=== PATIENT | male | born 1995 | race Hispanic/Latino ===

== ENCOUNTER 2018-12-12 14:46 | Emergency (ER) | payer OTHER ==
[2018-12-12 15:47] LABS: Absolute Lymphocytes (CBC) 1.6 K/uL (0.7-4.9); Absolute Monocytes 0.6 K/uL (0.1-1.3); Absolute Neutrophil 4.2 K/uL (1.8-8.0); Basophils % 1.3 % (0-1.3); Eosinophils % 2.9 % (0-4.4); Hematocrit 45.5 % (39.6-49.0); Lymphocytes % 24.5 % (15.3-44.8); MPV 6.8 fL (7.6-11.3); Monocytes % 9.4 % (3.3-12.3); RBC Red Blood Cell Count 5.49 M/uL (4.33-5.43)
--- NOTE | 2018-12-12 15:54 | EKG ---
Test Date: 2018-12-12 Test Time: 15:02:54 Grades 7 8 Tutor: LION MEASUREMENT RESULTS: Intervals: Rate: 89 [place]: 156 QRSD: 86 QT: 330 QTc: 401 [place]: P: 33 [place]: 156 QRS: 68 T: 18 INTERPRETIVE STATEMENTS: Normal sinus rhythm Normal ECG No previous ECG available for comparison Electronically Signed On 12-12-18 15:54:13 CDT by Bro Medellin
--- NOTE | 2018-12-12 15:58 | RAD REPORT ---
EXAM DESCRIPTION: RAD - Chest Single View - 12/12/2018 3:35 pm CLINICAL HISTORY: Chest pain COMPARISON: None. TECHNIQUE: AP portable chest image was obtained 1531 hours . FINDINGS: Lungs are clear. Heart and vasculature are normal. No measurable pleural effusion and no p neumothorax. No acute bony abnormality seen. No acute aortic findings suspected. IMPRESSION: No acute cardiopulmonary process.
[2018-12-12 16:08] LABS: BUN Blood Urea Nitrogen 12 mg/dL (7-18); Bicarbonate 30 mmol/L (21-32); Glucose Level 76 mg/dL (74-106); Potassium 3.7 mmol/L (3.5-5.1); Sodium Level 143 mmol/L (136-145); Troponin (Emerg Dept Use Only) < 0.02 ng/mL (0.0-0.045)
--- NOTE | 2018-12-12 16:27 | ER ---
Nurse's Notes [facility] Name: Ata Wise Age: 23 yrs Sex: Male : 1995 Arrival Date: 12/12/2018 Time: 14:48 Bed 28 Private MD: Diagnosis: Chest pain, unspecified Presentation: 12/12 14:56 Presenting complaint: Patient states: Chest pain upon waking in the morning x 1 week, ph reports that pain is in center of chest and improves approx 30 min after waking, also reports SOB when pain occurs, denies N/V. Transition of care: patient was not received from another setting of care. Onset of symptoms was December 12, 2018. Risk Assessment: Do you want to hurt yourself or someone else? Patient reports no desire to harm self or others. Initial Sepsis Screen: Does the patient meet any 2 criteria? No. Patient's initial sepsis screen is negative. Does the patient have a suspected source of infection? No. Patient's initial sepsis screen is negative. Care prior to arrival: None. 14:56 Method Of Arrival: Ambulatory 14:56 Acuity: KHADIJAH 3 ph Historical: - Allergies: 14:58 No Known Allergies; ph - Home Meds: 14:58 None [Active]; ph - PMHx: 14:58 None; ph - PSHx: 14:58 None; ph - Immunization history:: Adult Immunizations unknown. - Social history:: Smoking status: Patient/guardian denies using tobacco. - Ebola Screening: : No symptoms or risks identified at this time. Screenin:37 Abuse screen: Denies threats or abuse. Denies injuries from another. Nutritional rv screening: No deficits noted. Tuberculosis screening: No symptoms or risk factors identified. Fall Risk None identified. Assessment: 15:29 General: Appears in no apparent distress. comfortable, Behavior is calm, cooperative. rv Pain: Complains of pain in chest Pain does not radiate. Pain began MORE THAN A WEEK NOW. DURING THE MORNING UPON WAKING UP FOR 20 MINUTES. Neuro: Level of Consciousness is awake, alert, obeys commands, Oriented to person, place, time, situation. Cardiovascular: Capillary refill < 3 seconds Rhythm is regular Chest pain is described as Pain is 5 out of 10 on a pain scale. began HAPPENS DURING THE MORNING UPON WAKING UP AND LASTS FOR JUST 20 MINUTES. is alleviated by rest. Respiratory: Airway is patent. GI: No signs and/or symptoms were reported involving the gastrointestinal system. : No signs and/or symptoms were reported regarding the genitourinary system. EENT: No signs and/or symptoms were reported regarding the EENT system. Derm: Skin is intact. Musculoskeletal: No signs and/or symptoms reported regarding the musculoskeletal system. 16:44 Reassessment: Patient appears in no apparent distress at this time. Patient and/or rv family updated on plan of care and expected duration. Pain level reassessed. Patient is alert, oriented x 3, equal unlabored respirations, skin warm/dry/pink. discharge free of chest pain. Vital Signs: 14:57 BP 142 / 80; Pulse 83; Resp 18; Temp 98.2; Pulse Ox 98% on R/A; Weight 113.4 kg; Height ph 5 ft. 11 in. (180.34 cm); Pain 0/10; 15:39 BP 127 / 72 RA; Pulse 72; Resp 13 S; Temp 98.3; Pulse Ox 98% on R/A; rv 16:42 BP 117 / 70; Pulse 74; Resp 17; Temp 98.5; Pulse Ox 99% ; rv 14:57 Body Mass Index 34.87 (113.40 kg, 180.34 cm) ph ED Course: 14:48 Patient arrived in ED. as 14:57 Triage completed. ph 15:02 Rub[facility]-C [facility]. kb 15:02 Jean-Pierre Merchant MD is Attending Physician. kb 15:02 EKG done, by chemistry laboratory technician. reviewed by Rubia RANDOLPH. at1 15:25 Inserted saline lock: 20 gauge in left antecubital area, using aseptic technique. Blood ss collected. 15:29 José Miguel Cruz, AMANDA is Primary Nurse. rv 15:34 X-ray completed. Portable x-ray completed in exam room. Patient tolerated procedure mh1 well. 15:35 XRAY Chest (1 view) In Process Unspecified. EDMS 15:37 Patient maintains SpO2 saturation greater than 95% on room air. rv 15:37 Patient has correct armband on for positive identification. Bed in low position. Call rv light in reach. Side rails up X 1. Adult w/ patient. engine monitor on. Pulse ox on. NIBP on. 15:41 Arm band placed on right wrist. Patient placed in an exam room, on a stretcher, on rv bus monitor, on pulse oximetry, Patient notified of wait time. EKG completed in triage. Results shown to MD. 16:43 No provider procedures requiring assistance completed. IV discontinued, intact, rv bleeding controlled, No redness/swelling at site. Pressure dressing applied. Administered Medications: No medications were administered Outcome: 16:26 Discharge ordered by . kb 16:44 Discharged to home ambulatory. rv 16:44 Condition: good 16:44 Discharge instructions given to patient, Instructed on discharge instructions, follow up and referral plans. Demonstrated understanding of instructions, follow-up care. 16:44 Patient left the ED. rv Signatures: Dispatcher [employer] EDMS Rubia Lu, PRESCHOOL SPECIAL EDUCATION TEACHER-C PRESCHOOL SPECIAL EDUCATION TEACHER-CkBarbara Christina 1 Dulce Carlson Shelby, AMANDA RN Kandace Arita, fruit thinner machine operator EKG [facility] Yasemin Granda RN RN José Miguel Cruz, RN RN rv Corrections: (The following items were deleted from the chart) 16:03 15:39 BP 127 / 72 R Arm; Pulse 72bpm; Resp 13bpm; Spontaneous; Pulse Ox 98% RA; rv rv
--- NOTE | 2018-12-12 16:27 | EDPHYS ---
Physician Documentation [facility] Name: Ata Wise Age: 23 yrs Sex: Male : 1995 Arrival Date: 12/12/2018 Time: 14:48 Bed 28 Private MD: ED Physician Jean-Pierre Merchant HPI: 12/12 15:11 This 23 yrs old Male presents to ER via Ambulatory with complaints of Chest kb Pain. 15:11 The patient or guardian reports chest pain that is located primarily in the substernal kb area. The pain does not radiate. Associated signs and symptoms: Pertinent positives: shortness of breath, Pertinent negatives: abdominal pain, cough, diaphoresis, dizziness, headache, lower extremity pain, lower extremity swelling, lightheadedness, nausea, near syncope, palpitations, recent travel, syncope, vomiting. The chest pain is described as a heaviness. Duration: The patient or guardian reports multiple episodes, that have now resolved. Modifying factors: The symptoms are alleviated by nothing. the symptoms are aggravated by nothing. Severity of pain: At its worst the pain was mild moderate in the emergency department the pain has resolved. The patient has not experienced similar symptoms in the past. The patient has not recently seen a physician. Pt reports he has been waking up with chest pain every morning for about a week. Reports the chest pain last about 20-30 minutes and then subsides and doesn't come back until the next morning. Pain does not wake him up, just has the pain when he does wake up. . Historical: - Allergies: 14:58 No Known Allergies; ph - Home Meds: 14:58 None [Active]; ph - PMHx: 14:58 None; ph - PSHx: 14:58 None; ph - Immunization history:: Adult Immunizations unknown. - Social history:: Smoking status: Patient/guardian denies using tobacco. - Ebola Screening: : No symptoms or risks identified at this time. ROS: 15:10 Constitutional: Negative for fever, chills, and weight loss, Cardiovascular: Negative kb for chest pain, palpitations, and edema, Respiratory: Negative for shortness of breath, cough, wheezing, and pleuritic chest pain, Abdomen/GI: Negative for abdominal pain, nausea, vomiting, diarrhea, and constipation, MS/Extremity: Negative for injury and deformity, Skin: Negative for injury, rash, and discoloration, Neuro: Negative for headache, weakness, numbness, tingling, and seizure. Exam: 15:04 ECG was reviewed by the Attending Physician. kb 15:10 Constitutional: This is a well developed, well nourished patient who is awake, alert, kb and in no acute distress. Head/Face: Normocephalic, atraumatic. Chest/axilla: Normal chest wall appearance and motion. Nontender with no deformity. No lesions are appreciated. Cardiovascular: Regular rate and rhythm with a normal S1 and S2. No gallops, murmurs, or rubs. Normal PMI, no JVD. No pulse deficits. Respiratory: Lungs have equal breath sounds bilaterally, clear to auscultation and percussion. No rales, rhonchi or wheezes noted. No increased work of breathing, no retractions or nasal flaring. Abdomen/GI: Soft, non-tender, with normal bowel sounds. No distension or tympany. No guarding or rebound. No evidence of tenderness throughout. Skin: Warm, dry with normal turgor. Normal color with no rashes, no lesions, and no evidence of cellulitis. MS/ Extremity: Pulses equal, no cyanosis. Neurovascular intact. Full, normal range of motion. Neuro: Awake and alert, GCS 15, oriented to person, place, time, and situation. Cranial nerves II-XII grossly intact. Motor strength 5/5 in all extremities. Sensory grossly intact. Cerebellar exam normal. Normal gait. Vital Signs: 14:57 BP 142 / 80; Pulse 83; Resp 18; Temp 98.2; Pulse Ox 98% on R/A; Weight 113.4 kg; Height ph 5 ft. 11 in. (180.34 cm); Pain 0/10; 15:39 BP 127 / 72 RA; Pulse 72; Resp 13 S; Temp 98.3; Pulse Ox 98% on R/A; rv 16:42 BP 117 / 70; Pulse 74; Resp 17; Temp 98.5; Pulse Ox 99% ; rv 14:57 Body Mass Index 34.87 (113.40 kg, 180.34 cm) ph MDM: 15:02 Patient medically screened. kb 15:11 Data reviewed: vital signs, nurses notes. Data interpreted: Pulse oximetry: on room air kb is 98 %. Interpretation: normal. 16:26 Counseling: I had a detailed discussion with the patient and/or guardian regarding: the kb historical points, exam findings, and any diagnostic results supporting the discharge/admit diagnosis, lab results, radiology results, the need for outpatient follow up, a family practitioner, to return to the emergency department if symptoms worsen or persist or if there are any questions or concerns that arise at home. 12/12 15:09 Order name: Basic Metabolic Panel; Complete Time: 16:11 kb 12/12 15:09 Order name: CBC with Diff; Complete Time: 15:55 kb 12/12 15:09 Order name: Troponin (emerg Dept Use Only); Complete Time: 16:11 kb 12/12 15:09 Order name: XRAY Chest (1 view); Complete Time: 16:05 kb 12/12 15:09 Order name: EKG; Complete Time: 15:10 kb 12/12 15:09 Order name: Cardiac monitoring; Complete Time: 15:42 kb 12/12 15:09 Order name: EKG - Nurse/Tech; Complete Time: 15:42 kb 12/12 15:09 Order name: IV Saline Lock; Complete Time: 15:25 kb 08 15:09 Order name: Labs collected and sent; Complete Time: 15:25 kb 08 15:09 Order name: O2 Per Protocol; Complete Time: 15:42 kb 12/12 15:09 Order name: O2 Sat Monitoring; Complete Time: 15:42 kb EC:04 Rate is 89 beats/min. Rhythm is regular, Normal Sinus Rhythm. QRS [place] is Normal. NE kb interval is normal at 156 msec. QRS interval is normal at 86 msec. QT interval is normal at 330 msec. Clinical impression: Normal ECG. Interpreted by me. Reviewed by me. Administered Medications: No medications were administered Disposition: 12/13 06:58 Co-signature as Attending Physician, Jean-Pierre Merchant MD I agree with the assessment and kdr plan of care. Disposition: 12/12/18 16:26 Discharged to Home. Impression: Chest pain, unspecified. - Condition is Stable. - Discharge Instructions: Nonspecific Chest Pain, [id number]. - Medication Reconciliation Form, Thank You Letter, Antibiotic Education, Prescription Opioid Use form. - Work release form (12/12/18 17:02). ss - Follow up: Emergency Department; When: As needed; Reason: Worsening of condition. Follow up: Private Physician; When: 2 - 3 days; Reason: Recheck today's complaints, Continuance of care, Re-evaluation by your physician. Signatures: Dispatcher [employer] EDRubia Toledo, POWER ORIGINATOR-C POWER ORIGINATOR-Ckb Jean-Pierre Merchant MD MD [facility] Yasemin Granda RN RN José Miguel Cruz RN RN Avani Valle RN ss Corrections: (The following items were deleted from the chart) 12/12 16:44 16:26 12/12/2018 16:26 Discharged to Home. Impression: Chest pain, unspecified. rv Condition is Stable. Forms are Medication Reconciliation Form, Thank You Letter, Antibiotic Education, Prescription Opioid Use. Follow up: Emergency Department; When: As needed; Reason: Worsening of condition. Follow up: Private Physician; When: 2 - 3 days; Reason: Recheck today's complaints, Continuance of care, Re-evaluation by your physician. kb
== END 2018-12-12 16:44 | disposition home or self-care (01) ==
LOC: ER 14:46
DX: R07.9 Chest pain, unspecified (principal)
CPT/HCPCS: 36415; 71045; 80048; 84484; 85025; 93005; 99285

== ENCOUNTER 2020-04-23 21:36 | Emergency (ER) | payer OTHER ==
--- NOTE | 2020-04-24 00:03 | EDPHYS ---
Physician Documentation [facility] Name: Ata Wise Age: 24 yrs Sex: Male : 1995 Arrival Date: 04/23/2020 Time: 21:37 Bed 28 Private MD: ED Physician Roby Pretty HPI: 04/24 00:05 This 24 yrs old Male presents to ER via Ambulatory with complaints of Swolled snw Bottle Cap. 00:05 The patient presents to the emergency department pt had accidental ingestion of plastic snw bottle cap. Associated signs and symptoms: The patient has no apparent associated signs or symptoms. Severity of symptoms: At their worst the symptoms were very mild. The patient has not experienced similar symptoms in the past. The patient has not recently seen a physician. Historical: - Allergies: 04/23 21:57 No Known Allergies; jb4 - Home Meds: 21:57 None [Active]; jb4 - PMHx: 21:57 None; jb4 - PSHx: 21:57 None; jb4 - Immunization history:: Adult Immunizations unknown. - Social history:: Smoking status: Patient denies any tobacco usage or history of. Patient/guardian denies using alcohol, street drugs. ROS: 04/24 00:05 Constitutional: Negative for fever, chills, and weight loss, Eyes: Negative for injury, snw pain, redness, and discharge, ENT: Negative for injury, pain, and discharge, Neck: Negative for injury, pain, and swelling, Cardiovascular: Negative for chest pain, palpitations, and edema, Respiratory: Negative for shortness of breath, cough, wheezing, and pleuritic chest pain, Abdomen/GI: Negative for abdominal pain, nausea, vomiting, diarrhea, and constipation, Back: Negative for injury and pain, : Negative for injury, bleeding, discharge, and swelling, MS/Extremity: Negative for injury and deformity, Skin: Negative for injury, rash, and discoloration, Neuro: Negative for headache, weakness, numbness, tingling, and seizure, Psych: Negative for depression, anxiety, suicide ideation, homicidal ideation, and hallucinations. Exam: 00:05 Constitutional: This is a well developed, well nourished patient who is awake, alert, snw and in no acute distress. Head/Face: Normocephalic, atraumatic. Eyes: Pupils equal round and reactive to light, extra-ocular motions intact. Lids and lashes normal. Conjunctiva and sclera are non-icteric and not injected. Cornea within normal limits. Periorbital areas with no swelling, redness, or edema. ENT: Nares patent. No nasal discharge, no septal abnormalities noted. Tympanic membranes are normal and external auditory canals are clear. Oropharynx with no redness, swelling, or masses, exudates, or evidence of obstruction, uvula midline. Mucous membranes moist. Neck: Trachea midline, no thyromegaly or masses palpated, and no cervical lymphadenopathy. Supple, full range of motion without nuchal rigidity, or vertebral point tenderness. No Meningismus. Chest/axilla: Normal chest wall appearance and motion. Nontender with no deformity. No lesions are appreciated. Cardiovascular: Regular rate and rhythm with a normal S1 and S2. No gallops, murmurs, or rubs. Normal PMI, no JVD. No pulse deficits. Respiratory: Lungs have equal breath sounds bilaterally, clear to auscultation and percussion. No rales, rhonchi or wheezes noted. No increased work of breathing, no retractions or nasal flaring. Abdomen/GI: Soft, non-tender, with normal bowel sounds. No distension or tympany. No guarding or rebound. No evidence of tenderness throughout. Back: No spinal tenderness. No costovertebral tenderness. Full range of motion. Skin: Warm, dry with normal turgor. Normal color with no rashes, no lesions, and no evidence of cellulitis. MS/ Extremity: Pulses equal, no cyanosis. Neurovascular intact. Full, normal range of motion. Neuro: Awake and alert, GCS 15, oriented to person, place, time, and situation. Cranial nerves II-XII grossly intact. Motor strength 5/5 in all extremities. Sensory grossly intact. Cerebellar exam normal. Normal gait. Psych: Awake, alert, with orientation to person, place and time. Behavior, mood, and affect are within normal limits. Vital Signs: 04/23 21:55 BP 154 / 77; Pulse 92; Resp 16; Temp 99.2(TE); Pulse Ox 99% on R/A; Weight 117.93 kg jb4 (R); Height 5 ft. 11 in. (180.34 cm); Pain 0/10; 22:59 BP 125 / 103; Pulse 95; Temp 98.5(O); Pulse Ox 99% on R/A; Pain 0/10; fu 21:55 Body Mass Index 36.26 (117.93 kg, 180.34 cm) jb4 MDM: 04/24 00:02 Patient medically screened. snw 00:03 Data reviewed: vital signs, nurses notes. Data interpreted: Pulse oximetry: on room air snw is 99 %. Interpretation: normal. Counseling: I had a detailed discussion with the patient and/or guardian regarding: the historical points, exam findings, and any diagnostic results supporting the discharge/admit diagnosis, radiology results, the need for outpatient follow up, to return to the emergency department if symptoms worsen or persist or if there are any questions or concerns that arise at home. Special discussion: Based on the patient's Hx, exam, and Dx evaluation, there is no indication for emergent surgery or inpatient Tx. It is understood by the patient/guardian that if the Sx's persist or worsen they need to return immediately for re-evaluation. Based on the history and exam findings, there is no indication for further emergent testing or inpatient evaluation. I discussed with the patient/guardian the need to see the primary care provider for further evaluation of the symptoms. 04/23 22:30 Order name: Chest Single View EDMS 04/23 22:30 Order name: Abdomen 1 View (KUB) EDMS Administered Medications: 00:23 Drug: Miralax 17 grams Route: PO; fu 00:30 Follow up: Response: Medication administered at discharge. fu Disposition: 06:05 Co-signature as Attending Physician, Roby Pretty MD. pkl Disposition: 04/24/20 00:02 Discharged to Home. Impression: Accidental ingestion. - Condition is Stable. - Discharge Instructions: Nontoxic Ingestion. - Prescriptions for Miralax 17 gram/dose Oral - take 1 packet by ORAL route once daily dilute powder in 8 ounces of water or juice; 1 box. - Work release form, Medication Reconciliation Form, Thank You Letter, Antibiotic Education, Prescription Opioid Use form. - Follow up: Emergency Department; When: As needed; Reason: Worsening of condition. Follow up: Private Physician; When: 1 week; Reason: Recheck today's complaints, Continuance of care, Re-evaluation by your physician. Signatures: Dispatcher [employer] EDME Roby Pretty MD MD pkl Waters, Shelly, OIL RAG WASHER-C OIL RAG WASHER-Csnw Sterling Matson, RN RN jb4 Jonathan Nugent, RN RN fu Corrections: (The following items were deleted from the chart) 04/23 22:30 21:55 Foreign Body Sngl Flm Child+RAD.RAD.BRZ ordered. [facility] EDME 04/24 00:31 00:02 04/24/2020 00:02 Discharged to Home. Impression: Accidental ingestion. Condition fu is Stable. Forms are Medication Reconciliation Form, Thank You Letter, Antibiotic Education, Prescription Opioid Use. Follow up: Emergency Department; When: As needed; Reason: Worsening of condition. Follow up: Private Physician; When: 1 week; Reason: Recheck today's complaints, Continuance of care, Re-evaluation by your physician. snw
--- NOTE | 2020-04-24 00:03 | ER ---
Nurse's Notes [facility] Name: Ata Wise Age: 24 yrs Sex: Male : 1995 Arrival Date: 04/23/2020 Time: 21:37 Bed 28 [facility] MD: Diagnosis: Accidental ingestion Presentation: 04/23 21:55 Chief complaint: Patient states: I put a bottle in my mouth thinking the cap was off jb4 but I ended up swallowing it. Coronavirus screen: Client denies travel out of the [place] in the last 14 days. At this time, the client does not indicate any symptoms associated with coronavirus-19. Ebola Screen: No symptoms or risks identified at this time. Initial Sepsis Screen: Does the patient meet any 2 criteria? No. Patient's initial sepsis screen is negative. Does the patient have a suspected source of infection? No. Patient's initial sepsis screen is negative. Risk Assessment: Do you want to hurt yourself or someone else? Patient reports no desire to harm self or others. Onset of symptoms was April 23, 2020 at 21:25. Transition of care: patient was not received from another setting of care. 21:55 Method Of Arrival: Ambulatory jb4 21:55 Acuity: KHADIJAH 3 jb4 Triage Assessment: 21:57 General: Appears in no apparent distress. comfortable, Behavior is calm, cooperative, jb4 appropriate for age. Pain: Denies pain. Respiratory: Airway is patent Respiratory effort is even, unlabored, Respiratory pattern is regular, symmetrical, Denies cough, shortness of breath labored breathing. Historical: - Allergies: 21:57 No Known Allergies; jb4 - Home Meds: 21:57 None [Active]; jb4 - PMHx: 21:57 None; jb4 - PSHx: 21:57 None; jb4 - Immunization history:: Adult Immunizations unknown. - Social history:: Smoking status: Patient denies any tobacco usage or history of. Patient/guardian denies using alcohol, street drugs. Screenin:00 Abuse screen: Denies threats or abuse. Nutritional screening: No deficits noted. fu Tuberculosis screening: No symptoms or risk factors identified. Fall Risk None identified. Assessment: 22:56 General: Appears in no apparent distress. Behavior is calm, cooperative, appropriate fu for age. General: Reports swallowing plastic bottle cap accidentally around 2119 this evening. Pain: Denies pain. Neuro: Level of Consciousness is awake, alert, obeys commands. Cardiovascular: Denies chest pain, nausea, vomiting. Respiratory: Airway is patent. GI: Patient currently denies abdominal pain. EENT: No signs and/or symptoms were reported regarding the EENT system. 04/24 00:00 Reassessment: Patient appears in no apparent distress at this time. No changes from fu previously documented assessment. Patient and/or family updated on plan of care and expected duration. Pain level reassessed. Patient is alert, oriented x 3, equal unlabored respirations, skin warm/dry/pink. Patient denies pain at this time. Vital Signs: 04/23 21:55 BP 154 / 77; Pulse 92; Resp 16; Temp 99.2(TE); Pulse Ox 99% on R/A; Weight 117.93 kg jb4 (R); Height 5 ft. 11 in. (180.34 cm); Pain 0/10; 22:59 BP 125 / 103; Pulse 95; Temp 98.5(O); Pulse Ox 99% on R/A; Pain 0/10; fu 21:55 Body Mass Index 36.26 (117.93 kg, 180.34 cm) jb4 ED Course: 21:37 Patient arrived in ED. cl3 21:57 Triage completed. jb4 21:57 Arm band placed on right wrist. jb4 22:39 Chest Single View In Process Unspecified. EDMS 22:39 Abdomen 1 View (KUB) In Process Unspecified. EDMS 22:53 Jory Jones FNP-C is PHCP. snw 22:53 Roby Pretty MD is Attending Physician. snw 22:56 Jonathan Nugent, AMANDA is Primary Nurse. fu 23:00 Patient has correct armband on for positive identification. Bed in low position. Call fu light in reach. 23:00 Pulse ox on. NIBP on. fu 04/24 00:30 No provider procedures requiring assistance completed. Patient did not have IV access fu during this emergency room visit. Administered Medications: 00:23 Drug: Miralax 17 grams Route: PO; fu 00:30 Follow up: Response: Medication administered at discharge. fu Outcome: 00:02 Discharge ordered by . snw 00:30 Discharged to home ambulatory. fu 00:30 Condition: good 00:30 Discharge instructions given to patient, Instructed on discharge instructions, follow up and referral plans. Demonstrated understanding of instructions, Prescriptions given X 1. 00:31 Patient left the ED. fu Signatures: Dispatcher [employer] EDMS Jory Jones, COMPUTER APPLICATIONS ENGINEER-C COMPUTER APPLICATIONS ENGINEER-Csnw Sterling Matson RN RN jb4 Jonathan Nugent RN Renae Steele cl3
[2020-04-24] MEDS ORDERED: POLYETHYL GLY 3350 17 GM/DOSE ONE (00:32)
--- NOTE | 2020-04-24 07:29 | RAD REPORT ---
EXAM DESCRIPTION: RAD - Chest Single View - 04/23/2020 10:39 pm CLINICAL HISTORY: swallowed object, foreign body ingestion COMPARISON: None TECHNIQUE: AP portable chest image was obtained 04/23/2020 10:39 pm . FINDINGS: Lungs are clear. No tracheal shift or air-trapping. Heart and vasculature are normal. No m easurable pleural effusion and no pneumothorax. No acute bony abnormality seen. No acute aortic findi ngs suspected. IMPRESSION: No acute cardiopulmonary process. No foreign body identifiable.
--- NOTE | 2020-04-24 07:37 | RAD REPORT ---
EXAM DESCRIPTION: RAD - Abdomen 1 View (KUB) - 04/23/2020 10:39 pm CLINICAL HISTORY: SWALLOWED BOTTLE CAP COMPARISON: Chest Single View dated 04/23/2020 FINDINGS: Bowel gas pattern is non-specific. No obstruction, free air or pneumatosis. Density in th e left upper quadrant is probably food and fluid distended stomach. It is possible the image is rever sed and mislabeled right versus left. Splenomegaly cannot be excluded. The KUB images did not include the diaphragm and upper few cm of the abdomen. The chest films sees the hemidiaphragms but does not adequately image liver and spleen. No radiopaque foreign body is identifiable. No significant bony findings IMPRESSION: As detailed above, no foreign body or other emergent finding identifiable. If there are continued concerns for definitive evaluation of a foreign body, CT imaging may be needed .
[2020-04-24 13:44] VITALS: O2SAT 99
[2020-04-24 13:45] VITALS: BP 125/103; TEMP 98.5
== END 2020-04-24 00:31 | disposition home or self-care (01) ==
LOC: ER 21:36
DX: T18.2XXA Foreign body in stomach, initial encounter (principal)
CPT/HCPCS: 71045; 74018; 99284

== ENCOUNTER 2021-03-06 19:50 | Emergency (ER) | payer OTHER ==
--- NOTE | 2021-03-07 01:25 | ER ---
Nurse's Notes [facility] Name: Ata Wise Age: 25 yrs Sex: Male : 1995 Arrival Date: 03/06/2021 Time: 19:52 Bed Waiting Private MD: Diagnosis: Presentation: 03/06 21:10 Chief complaint: Patient states: he has had diarrhea since Monday, denies abdominal bb pain, has no appetite. Coronavirus screen: diarrhea, Client presents with at least one sign or symptom that may indicate coronavirus-19. Standard/surgical mask placed on the client. Ebola Screen: No symptoms or risks identified at this time. Initial Sepsis Screen: Does the patient meet any 2 criteria? No. Patient's initial sepsis screen is negative. Does the patient have a suspected source of infection? No. Patient's initial sepsis screen is negative. Risk Assessment: Do you want to hurt yourself or someone else? Patient reports no desire to harm self or others. Onset of symptoms was March 03, 2021. 21:10 Method Of Arrival: Ambulatory bb 21:10 Acuity: KHADIJAH 3 bb Triage Assessment: 21:13 General: Appears in no apparent distress. Behavior is calm, cooperative. Pain: Denies bb pain. Neuro: Level of Consciousness is awake, alert, obeys commands, Oriented to person, place, time, situation. Cardiovascular: Capillary refill < 3 seconds Patient's skin is warm and dry. Respiratory: Respiratory effort is even, unlabored, Respiratory pattern is regular. GI: Abdomen is non-distended, Reports diarrhea. Derm: Skin is pink, warm \T\ dry. Musculoskeletal: Circulation, motion, and sensation intact. Historical: - Allergies: 21:13 No Known Allergies; bb - Home Meds: 21:13 None [Active]; bb - PMHx: 21:13 None; bb - PSHx: 21:13 None; bb - Immunization history:: Adult Immunizations up to date. - Social history:: Smoking status: Patient denies any tobacco usage or history of. Patient/guardian denies using alcohol, street drugs. Vital Signs: 21:10 BP 132 / 86; Pulse 78; Resp 16 S; Temp 98(O); Pulse Ox 99% on R/A; Weight 120.2 kg (R); bb Height 5 ft. 10 in. (177.80 cm) (R); Pain 0/10; 21:10 Body Mass Index 38.02 (120.20 kg, 177.80 cm) julieta ED Course: 19:52 Patient arrived in ED. wm 21:13 Triage completed. bb 21:13 Arm band placed on Patient placed in waiting room, Patient notified of wait time. bb Family accompanied patient. 03/07 01:24 Patient's name was called from ER lobby. No response. Unable to locate patient. Will bb disposition as left without being seen by a provider. Administered Medications: No medications were administered Outcome: 01:24 Patient left the ED. bb Signatures: Audrey Valentin RN RN bb Elvia Jarrett
[2021-03-07 02:32] VITALS: BP 132/86; TEMP 98; O2SAT 99
== END 2021-03-07 01:24 | disposition left against medical advice (07) ==
LOC: ER 19:50
DX: Z53.21 Procedure and treatment not carried out due to patient leaving prior to being seen by health care provider (principal)
CPT/HCPCS: 99281

== ENCOUNTER 2021-10-27 16:22 | Emergency (ER) | payer OTHER, SELFPAY ==
--- NOTE | 2021-10-27 18:51 | ER ---
Nurse's Notes [facility] Name: Ata Bradshaw Age: 25 yrs Sex: Male : 1995 Arrival Date: 10/27/2021 Time: 16:54 Bed 12 Private MD: Diagnosis: Pain in left ankle and joints of left foot Presentation: 10/27 16:58 Chief complaint: Patient states: "I was at work and I jumped off a trailer wrong about ab2 3 weeks ago and it still is hurting.". Coronavirus screen: Vaccine status: Patient reports being unvaccinated. Client denies travel out of the [place] in the last 14 days. At this time, the client does not indicate any symptoms associated with coronavirus-19. Ebola Screen: Patient negative for fever greater than or equal to 101.5 degrees Fahrenheit, and additional compatible Ebola Virus Disease symptoms Patient denies exposure to infectious person. Patient denies travel to an Ebola-affected area in the 21 days before illness onset. No symptoms or risks identified at this time. Initial Sepsis Screen: Does the patient meet any 2 criteria? No. Patient's initial sepsis screen is negative. Does the patient have a suspected source of infection? No. Patient's initial sepsis screen is negative. Risk Assessment: Do you want to hurt yourself or someone else? Patient reports no desire to harm self or others. Onset of symptoms is unknown. 16:58 Method Of Arrival: Ambulatory ab2 16:58 Acuity: KHADIJAH 4 ab2 Triage Assessment: 16:59 General: Appears in no apparent distress. comfortable, Behavior is calm, cooperative, ab2 appropriate for age. Pain: Complains of pain in left lateral ankle and lateral aspect of left foot. Musculoskeletal: Reports pain in left lateral ankle and lateral aspect of left foot. Injury Description: Pt jumped off a trailer and rolled ankle. Historical: - Allergies: 16:59 No Known Allergies; ab2 - Home Meds: 16:59 None [Active]; ab2 - PMHx: 16:59 None; ab2 - PSHx: 16:59 None; ab2 - Immunization history:: Adult Immunizations up to date. - Social history:: Smoking status: Reported history of juuling and/or vaping. Screenin:01 Abuse screen: Denies threats or abuse. Nutritional screening: No deficits noted. ss Tuberculosis screening: No symptoms or risk factors identified. 18:16 Fall Risk Gait- Impaired (20 pts.). ss7 Assessment: 18:01 Reassessment: No changes from previously documented assessment. Patient and/or family ss updated on plan of care and expected duration. Pain level reassessed. Patient is alert, oriented x 3, equal unlabored respirations, skin warm/dry/pink. 18:16 General: Appears in no apparent distress. Behavior is calm, cooperative, appropriate ss7 for age. Pain: Complains of pain in lateral aspect of left foot and left lateral ankle. Neuro: No deficits noted. Cardiovascular: No deficits noted. Respiratory: No deficits noted. GI: No deficits noted. : No deficits noted. EENT: No deficits noted. Derm: No deficits noted. Musculoskeletal: Reports pain in lateral aspect of left foot and left lateral ankle. Vital Signs: 16:58 BP 121 / 77; Pulse 81; Resp 17; Temp 98.9(TE); Pulse Ox 100% on R/A; Weight 124.74 kg; ab2 Height 5 ft. 10 in. (177.80 cm); Pain 6/10; 19:08 BP 110 / 73; Pulse 80; Resp 18; Pulse Ox 99% on R/A; ss7 16:58 Body Mass Index 39.46 (124.74 kg, 177.80 cm) ab2 ED Course: 16:54 Patient arrived in ED. as 16:59 Triage completed. ab2 17:00 Arm band placed on right wrist. ab2 18:00 Patient placed in an exam room, on a stretcher. ss 18:01 Patient has correct armband on for positive identification. Bed in low position. Call ss light in reach. Side rails up X 1. Cardiac monitoring not applicable on this patient. 18:14 Frederick Hinojosa PA is PHCP. jr8 18:14 Oscar De La Torre MD is Attending Physician. jr8 18:16 Madelyn Ha, AMANDA is Primary Nurse. ss7 18:16 No provider procedures requiring assistance completed. Patient did not have IV access ss7 during this emergency room visit. 18:33 XRAY Ankle LEFT 3 view In Process Unspecified. EDMS 18:33 XRAY Foot LEFT 3 View In Process Unspecified. EDMS 18:49 Lan Stephens DPM is Referral Physician. paul Administered Medications: No medications were administered Outcome: 18:50 Discharge ordered by . paul 19:08 Discharged to home ambulatory. ss7 19:08 Condition: good 19:08 Discharge instructions given to patient, Instructed on discharge instructions, Demonstrated understanding of instructions, follow-up care. 19:08 Patient left the ED. ss7 Signatures: Dispatcher [employer] EDMS Dulce Carlson Shelby, RN RN Frederick Hinojosa PA PA jr8 Bleininger, Alexis ab2 Madelyn Ha, AMANDA RN ss7 Corrections: (The following items were deleted from the chart) 17:00 16:58 Pulse 81bpm; Resp 17bpm; Pulse Ox 100% RA; Temp 98.9F Temporal; 124.74 kg; Height ab2 5 ft. 10 in.; BMI: 39.4; Pain 6/10; ab2
--- NOTE | 2021-10-27 18:51 | EDPHYS ---
Physician Documentation [facility] Name: Ata Bradshaw Age: 25 yrs Sex: Male : 1995 Arrival Date: 10/27/2021 Time: 16:54 Bed 12 Private MD: ED Physician Oscar De La Torre HPI: 10/27 18:46 This 25 yrs old Male presents to ER via Ambulatory with complaints of Ankle jr8 Injury. 18:46 Onset: The symptoms/episode began/occurred acutely, 3 week(s) ago. Context: The problem jr8 was sustained outdoors, resulted from the patient falling, The mechanism of injury involved inversion of the affected ankle. The patient can fully bear weight on the affected extremity. the patient is able to ambulate, without difficulty. Associated signs and symptoms: The patient has no apparent associated signs or symptoms. Severity of symptoms: At their worst the symptoms were mild, in the emergency department the symptoms are unchanged. The patient has not experienced similar symptoms in the past. The patient has not recently seen a physician. Patient stated that he injured his ankle and foot about 3 weeks ago. Has been able to walk on it but still has continued pain.. Historical: - Allergies: 16:59 No Known Allergies; ab2 - Home Meds: 16:59 None [Active]; ab2 - PMHx: 16:59 None; ab2 - PSHx: 16:59 None; ab2 - Immunization history:: Adult Immunizations up to date. - Social history:: Smoking status: Reported history of juuling and/or vaping. ROS: 18:46 Eyes: Negative for injury, pain, redness, and discharge, ENT: Negative for injury, jr8 pain, and discharge, Neck: Negative for injury, pain, and swelling, Cardiovascular: Negative for chest pain, palpitations, and edema, Respiratory: Negative for shortness of breath, cough, wheezing, and pleuritic chest pain, Abdomen/GI: Negative for abdominal pain, nausea, vomiting, diarrhea, and constipation, Back: Negative for injury and pain, Skin: Negative for injury, rash, and discoloration, Neuro: Negative for headache, weakness, numbness, tingling, and seizure. 18:46 MS/extremity: Positive for pain, tenderness, of the left ankle and dorsal foot. Exam: 18:46 Constitutional: This is a well developed, well nourished patient who is awake, alert, jr8 and in no acute distress. Cardiovascular: Regular rate and rhythm with a normal S1 and S2. No gallops, murmurs, or rubs. Normal PMI, no JVD. No pulse deficits. Respiratory: Lungs have equal breath sounds bilaterally, clear to auscultation and percussion. No rales, rhonchi or wheezes noted. No increased work of breathing, no retractions or nasal flaring. Skin: Warm, dry with normal turgor. Normal color with no rashes, no lesions, and no evidence of cellulitis. Neuro: Awake and alert, GCS 15, oriented to person, place, time, and situation. Cranial nerves II-XII grossly intact. Motor strength 5/5 in all extremities. Sensory grossly intact. 18:46 Musculoskeletal/extremity: Extremities: noted in the left ankle: pain, tenderness, to anterior and lateral ankle, noted in the left foot: pain, tenderness, dorsal and lateral foot over the 4th and 5th metatarsals , ROM: intact in all extremities, Circulation is intact in all extremities. Sensation intact. Vital Signs: 16:58 BP 121 / 77; Pulse 81; Resp 17; Temp 98.9(TE); Pulse Ox 100% on R/A; Weight 124.74 kg; ab2 Height 5 ft. 10 in. (177.80 cm); Pain 6/10; 19:08 BP 110 / 73; Pulse 80; Resp 18; Pulse Ox 99% on R/A; ss7 16:58 Body Mass Index 39.46 (124.74 kg, 177.80 cm) ab2 MDM: 18:27 Patient medically screened. jr8 18:46 Data reviewed: vital signs, nurses notes, radiologic studies, plain films. Data jr8 interpreted: Pulse oximetry: on room air is 100 %. Interpretation: normal. Counseling: I had a detailed discussion with the patient and/or guardian regarding: the historical points, exam findings, and any diagnostic results supporting the discharge/admit diagnosis, radiology results, the need for outpatient follow up, a general contractor, to return to the emergency department if symptoms worsen or persist or if there are any questions or concerns that arise at home. ED course: Discussed with patient that there is no acute fracture of the ankle or foot at this time. Could have soft tissue injury such as ligamental tear. Recommended following up with podiatry at this point. Patient good with the plan at this time.. 10/27 17:01 Order name: NICOLE Ankle LEFT 3 view ab2 10/27 17:01 Order name: NICOLE Foot LEFT 3 View ab2 Administered Medications: No medications were administered Disposition Summary: 10/27/21 18:50 Discharge Ordered Location: Home jr8 Problem: new jr8 Symptoms: are unchanged jr8 Condition: Stable jr8 Diagnosis - Pain in left ankle and joints of left foot jr8 Followup: jr8 - With: Lan Stephens DPM - When: 2 - 3 days - Reason: Recheck today's complaints, Continuance of care, Re-evaluation by your physician Discharge Instructions: - Discharge Summary Sheet jr8 - Joint Pain jr8 - Musculoskeletal Pain jr8 - Ankle Pain jr8 Forms: - Medication Reconciliation Form jr8 - Thank You Letter jr8 - Antibiotic Education jr8 - Prescription Opioid Use jr8 Addendum: 10/29/2021 06:57 Co-signature as Attending Physician, Oscar De La Torre MD. r n Signatures: Dispatcher [employer] EDOscar Trinidad MD MD rn Frederick Hinojosa PA PA jr8 Hemant Carrillo ab2
--- NOTE | 2021-10-27 19:10 | RAD REPORT ---
EXAM DESCRIPTION: RAD - Ankle Left 3 View - 10/27/2021 6:32 pm CLINICAL HISTORY: PAINfollowing trauma COMPARISON: No comparisons FINDINGS: No fracture, dislocation or periosteal reaction. No joint effusion seen. No joint space na rrowing. No soft tissue abnormality. IMPRESSION: Negative left ankle for fracture or other acute finding.
--- NOTE | 2021-10-27 19:11 | RAD REPORT ---
EXAM DESCRIPTION: RAD - Foot Left 3 View - 10/27/2021 6:32 pm CLINICAL HISTORY: PAIN COMPARISON: No comparisons FINDINGS: No fracture, dislocation or periosteal reaction. No acute or destructive bony process. No air or foreign body in the soft tissues. IMPRESSION: Negative left foot examination.
[2021-10-27 20:13] VITALS: TEMP 98.9
[2021-10-27 20:14] VITALS: BP 110/73; O2SAT 99
== END 2021-10-27 19:08 | disposition home or self-care (01) ==
LOC: ER 16:22
DX: M25.572 Pain in left ankle and joints of left foot (principal)
CPT/HCPCS: 99283